=== PATIENT | female | born 1990 | race African-American/Black ===

== ENCOUNTER 2021-09-08 07:46 | Emergency (ER) | payer BC, OTHER ==
[~2021-09-08] VITALS: Ht 172.7 cm; Wt 76.7 kg
[2021-09-08 08:31] LABS: Basophils # (auto) 0.1 10 ^3/uL (0-0.2); Basophils % (auto) 0.5 % (0.0-2.0); Eosinophils # (auto) 0.2 10 ^3/uL (0-0.8); Lymphocytes # (auto) 3.5 10 ^3/uL (0.4-5.4); Nucleated Red Blood Cells % 0.1 %
[2021-09-08 08:33] LABS: Eosinophils % (auto) 0.9 % (0.0-7.0); Hematocrit 41.2 % (36.0-46.0); Hemoglobin 13.1 g/dL (12.2-16.2); Lymphocytes % (auto) 16.3 % (10.0-50.0); Mean Corpuscular Hemoglobin 28.3 pg (28.0-32.0); Mean Corpuscular Hgb Conc. 31.9 g/dL (32.0-36.0); Mean Corpuscular Volume 88.7 fL (80.0-100.0); Monocytes # (auto) 1.3 10 ^3/uL (0-1.3); Monocytes % (auto) 6.2 % (0.0-12.0); Neutrophils # (auto) 16.3 10 ^3/uL (1.6-8.6); Neutrophils % (auto) 76.1 % (37.0-80.0); Red Blood Cells 4.64 10^6/uL (4.0-5.20); Red Cell Distribution Width 13.6 % (11.8-14.3); White Blood Cell 21.4 10^3/uL (4.4-10.8)
[2021-09-08 09:07] LABS: Albumin 4.3 g/dL (3.4-5.0); BUN/Creatinine Ratio 16.7; Calcium 8.9 mg/dL (8.5-10.1); Potassium 3.4 mmol/L (3.5-5.1)
[2021-09-08 09:10] LABS: Bilirubin, Total 0.5 mg/dL (0.2-1.0)
[2021-09-08 09:30] LABS: Basophils # (auto) 0.1 10 ^3/uL (0-0.2); Lymphocytes # (auto) 2.7 10 ^3/uL (0.4-5.4); Lymphocytes % (auto) 15.1 % (10.0-50.0)
[2021-09-08] MEDS ORDERED: POTASSIUM EFFERVESENT TAB 25 MEQ PO ONE (09:30)
[2021-09-08 09:31] LABS: Basophils % (auto) 0.4 % (0.0-2.0); Eosinophils # (auto) 0.1 10 ^3/uL (0-0.8); Eosinophils % (auto) 0.7 % (0.0-7.0); Hemoglobin 12.6 g/dL (12.2-16.2); Mean Corpuscular Hemoglobin 29.1 pg (28.0-32.0); Mean Corpuscular Hgb Conc. 33.2 g/dL (32.0-36.0); Mean Corpuscular Volume 87.7 fL (80.0-100.0); Monocytes % (auto) 5.5 % (0.0-12.0); Neutrophils # (auto) 14.1 10 ^3/uL (1.6-8.6); Neutrophils % (auto) 78.3 % (37.0-80.0); Red Blood Cells 4.34 10^6/uL (4.0-5.20); Red Cell Distribution Width 13.6 % (11.8-14.3)
[2021-09-08 09:34] LABS: Urine Bacteria FEW /hpf (None Seen); Urine Blood 3+ /uL (Negative); Urine Mucus FEW (None Seen); Urine WBC 105 /hpf (0 - 5)
[2021-09-08 11:00] VITALS: BP 138/100
[2021-09-08] MEDS ORDERED: CEPH-322 PO (13:23)
== END 2021-09-08 13:43 | disposition home or self-care (01) ==
LOC: ER 07:46
DX: N93.8 Other specified abnormal uterine and vaginal bleeding (principal); D75.839 Thrombocytosis, unspecified; D72.829 Elevated white blood cell count, unspecified; F12.10 Cannabis abuse, uncomplicated
CPT/HCPCS: 36415; 80053; 81001; 81025; 84702; 85025; 86850; 86900; 86901

== ENCOUNTER 2021-09-09 07:14 | Emergency (ER) | payer BC ==
[~2021-09-09] VITALS: Ht 172.7 cm; Wt 76.7 kg
[~2021-09-09 07:14] MED LIST: CEPH-322 PO
[2021-09-09 07:38] VITALS: BP 143/103
== END 2021-09-09 07:38 | disposition home or self-care (01) ==
LOC: ER 07:14
DX: N93.8 Other specified abnormal uterine and vaginal bleeding (principal); D72.829 Elevated white blood cell count, unspecified; D75.839 Thrombocytosis, unspecified; F12.10 Cannabis abuse, uncomplicated

== ENCOUNTER 2021-10-25 08:46 | Emergency (ER) | payer BC ==
[~2021-10-25] VITALS: Ht 172.7 cm; Wt 72.6 kg
[2021-10-25 10:31] LABS: Basophils # (auto) 0.2 10 ^3/uL (0-0.2); Mean Corpuscular Volume 88.2 fL (80.0-100.0); Monocytes # (auto) 0.7 10 ^3/uL (0-1.3)
[2021-10-25 10:33] LABS: Basophils % (auto) 1.1 % (0.0-2.0); Eosinophils # (auto) 0 10 ^3/uL (0-0.8); Eosinophils % (auto) 0.2 % (0.0-7.0); Hematocrit 36.5 % (36.0-46.0); Hemoglobin 12.4 g/dL (12.2-16.2); Lymphocytes # (auto) 2.2 10 ^3/uL (0.4-5.4); Lymphocytes % (auto) 11.6 % (10.0-50.0); Monocytes % (auto) 3.8 % (0.0-12.0); Neutrophils # (auto) 15.6 10 ^3/uL (1.6-8.6); Neutrophils % (auto) 83.3 % (37.0-80.0); Red Blood Cells 4.14 10^6/uL (4.0-5.20); Red Cell Distribution Width 13.2 % (11.8-14.3); White Blood Cell 18.7 10^3/uL (4.4-10.8)
[2021-10-25 10:35] LABS: Albumin 3.8 g/dL (3.4-5.0); Calcium 8.7 mg/dL (8.5-10.1); Potassium 3.4 mmol/L (3.5-5.1)
[2021-10-25 10:41] LABS: BUN/Creatinine Ratio 18.8; Bilirubin, Total 0.5 mg/dL (0.2-1.0); Total Protein 7.3 g/dL (6.4-8.2)
[2021-10-25 11:45] VITALS: BP 142/94
== END 2021-10-25 13:43 | disposition home or self-care (01) ==
LOC: ER 08:46
DX: D75.839 Thrombocytosis, unspecified (principal); R51.9 Headache, unspecified; R00.2 Palpitations; F12.10 Cannabis abuse, uncomplicated
CPT/HCPCS: 36415; 70450; 71045; 80053; 84484; 85025; 93005